=== PATIENT | male | born 1950 | race Caucasian/White ===

== ENCOUNTER → 2017-07-20 12:42 | Outpatient (CLI) | payer MEDICARE, SELFPAY ==
[2017-07-20 12:51] VITALS: BP 127/88; PULSE 58; RESP 16; TEMP 36.6; O2SAT 95; BMI 32.5
== END ==
PROVIDERS: Visit Provider Internal Medicine Rheumatology
DX: M06.4 Inflammatory polyarthropathy (principal)
CPT/HCPCS: 96413; J7050; A4216; J1602

== ENCOUNTER → 2017-09-14 10:20 | Outpatient (CLI) | payer MEDICARE, SELFPAY ==
[2017-09-14 10:38] VITALS: BP 119/79; PULSE 86; RESP 16; TEMP 36.7; BMI 32.3
== END ==
PROVIDERS: Visit Provider Internal Medicine Rheumatology
DX: M06.4 Inflammatory polyarthropathy (principal)
CPT/HCPCS: 96413; J7050; A4216; J1602

== ENCOUNTER → 2017-11-09 10:04 | Outpatient (CLI) | payer MEDICARE, SELFPAY ==
[2017-11-09 10:34] VITALS: BP 128/82; PULSE 79; RESP 16; TEMP 37.1; O2SAT 95; BMI 32.7
== END ==
PROVIDERS: Visit Provider Internal Medicine Rheumatology
DX: M06.4 Inflammatory polyarthropathy (principal)
CPT/HCPCS: 96413; J7050; A4216; J1602

== ENCOUNTER → 2018-01-04 10:24 | Outpatient (CLI) | payer MEDICARE, SELFPAY ==
[2018-01-04 11:15] VITALS: BP 120/92; PULSE 67; RESP 16; TEMP 36.7; BMI 32.7
== END ==
PROVIDERS: Visit Provider Internal Medicine Rheumatology
DX: M06.4 Inflammatory polyarthropathy (principal)
CPT/HCPCS: 96413; J7050; A4216; J1602

== ENCOUNTER → 2018-03-01 10:03 | Outpatient (CLI) | payer MEDICARE, SELFPAY ==
[2018-03-01 10:14] VITALS: BP 126/90; PULSE 83; TEMP 37.2; O2SAT 95; BMI 32.8
== END ==
PROVIDERS: Visit Provider Internal Medicine Rheumatology
DX: M06.4 Inflammatory polyarthropathy (principal)
CPT/HCPCS: 96413; A4216; J1602

== ENCOUNTER → 2018-04-26 10:05 | Outpatient (CLI) | payer MEDICARE, SELFPAY ==
[2018-04-26 10:25] VITALS: BP 125/90; PULSE 71; RESP 16; TEMP 36.3; O2SAT 95; BMI 33.2
--- OUTSIDE RECORDS SUMMARY | 2018-07-28 22:38 | XMS RPT_ITS ---
:1950 Author Organization [place] Support Name Relationship Address Phone HILL, LUZ MARIA Unavailable [address] + ~[phone] [place] [address] HILL, LUZ MARIA Unavailable [address] + ~[phone] [place] [address] HILL, LUZ MARIA Unavailable [address] + [place] [address] R Unavailable Unavailable Unavailable HILL, LUZ MARIA Unavailable [address] + [place] [address] R Unavailable Unavailable Unavailable HILL, LUZ MARIA Unavailable [address] + ~[phone] [place] [address] HILL, LUZ MARIA Unavailable [address] + ~[phone] [place] [address] HILL, LUZ MARIA Unavailable [address] + [place] [address] R Unavailable Unavailable Unavailable HILL, LUZ MARIA Unavailable [address] + [place] [address] R Unavailable Unavailable Unavailable HILL, LUZ MARIA Unavailable [address] + ~[phone] [place] [address] HILL, LUZ MARIA Unavailable [address] + ~[phone] [place] [address] HILL, LUZ MARIA Unavailable [address] + [place] [address] R Unavailable Unavailable Unavailable HILL, LUZ MARIA Unavailable [address] [phone] [place] [address] R Unavailable Unavailable Unavailable HILL, LUZ MARIA Unavailable [address] + ~[phone] [place] [address] HILL, LUZ MARIA Unavailable [address] + ~[phone] [place] [address] HILL, LUZ MARIA Unavailable [address] [phone] [place] [address] R Unavailable Unavailable Unavailable HILL, LUZ MARIA Unavailable [address] + ~[phone] [place] [address] HILL, LUZ MARIA Unavailable [address] + ~[phone] [place] [address] HILL, LUZ MARIA Unavailable [address] + ~[phone] [place] [address] HILL, LUZ MARIA Unavailable [address] + ~[phone] [place] [address] Care Team Providers Name Role Phone Vellanki, Iva Attending Unavailable Vellanki, Iva Referring Unavailable REMA WEBSTER Primary Care Unavailable Vellanki, Iva Attending Unavailable Vellanki, Iva Referring Unavailable REMA WEBSTER Primary Care Unavailable Vellanki, Iva Attending Unavailable Vellanki, Iva Referring Unavailable REMA WEBSTER Primary Care Unavailable Vellanki, Iva Attending Unavailable Vellanki, Iva Referring Unavailable REMA WEBSTER Primary Care Unavailable Vellanki, Iva Attending Unavailable Vellanki, Iva Referring Unavailable REMA WEBSTER Primary Care Unavailable Vellanki, Iva Attending Unavailable Vellanki, Iva Referring Unavailable REMA WEBSTER Primary Care Unavailable Vellanki, Iva Attending Unavailable Vellanki, Iva Referring Unavailable REMA WEBSTER Primary Care Unavailable VELLANKI, IVA Admitting Unavailable VELLANKI, IVA Attending Unavailable CHERYL DO, DR SINGH Primary Care Unavailable OGLE DO, DR SINGH Consulting Unavailable VELLANKI, IVA Consulting Unavailable CHERYL TILLMAN, DR SINGH Admitting Unavailable CHERYL TILLMAN, DR SINGH Attending Unavailable CHERYL TILLMAN, DR SINGH Primary Care Unavailable Shivam [phone], Alejandrina [phone] Consulting Unavailable CHERYL DO, DR SINGH Consulting Unavailable DAVID LEORY Admitting Unavailable GREG LE Attending Unavailable OGLE DO, DR SINGH Consulting Unavailable CUSH, GREG Admitting Unavailable CUSHDAVIDGREG Attending Unavailable OGLE DO, DR SINGH Primary Care Unavailable NONE, NONE Consulting Unavailable POW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, FLAVIO A Admitting Unavailable POW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, FLAVIO A Attending Unavailable OGLE DO, DR SINGH Primary Care Unavailable OGLE DO, DR SINGH Consulting Unavailable POW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, FLAVIO A Consulting Unavailable CUSH, GREG Admitting Unavailable CUSH, GREG Attending Unavailable OGLE DO, DR SINGH Primary Care Unavailable NONE, NONE Consulting Unavailable VELLANKI, IVA Admitting Unavailable VELLANKI, IVA Attending Unavailable OGLE DO, DR SINGH Primary Care Unavailable OGLE DO, DR SINGH Consulting Unavailable VELLANKI, IVA Consulting Unavailable VELLANKI, IVA Admitting Unavailable VELLANKI, IVA Attending Unavailable OGLE DO, DR SINGH Primary Care Unavailable OGLE DO, DR SINGH Consulting Unavailable VELLANKI, IVA Consulting Unavailable ROSE MARIE HICKS, DR WARREN Admitting Unavailable ROSE MARIE HICKS, DR WARREN Attending Unavailable OGLE DO, DR SINGH Primary Care Unavailable ROSE MARIE HICKS, DR WARREN Consulting Unavailable OGLE DO, DR SINGH Consulting Unavailable ROSE MARIE HICKS, DR WARREN Admitting Unavailable ROSE MARIE HICKS, DR WARREN Attending Unavailable OGLE DO, DR SINGH Primary Care Unavailable ROSE MARIE HICKS, DR WARREN Consulting Unavailable OGLE DO, DR SINGH Consulting Unavailable VELLANKI, IVA Admitting Unavailable VELLANKI, IVA Attending Unavailable OGLE DO, DR SINGH Primary Care Unavailable OGLE DO, DR SINGH Consulting Unavailable VELLANKI, IVA Consulting Unavailable PROBLEMS PROBLEMS DATE TYPE CONDITION / CODE ATTENDING STATUS SOURCE Admitting INFLAMMATORY TRISTAN Active [place] [address] diagnosis POLYARTHROPATHY / [facility] M06.4(ICD-10) Repository Unknown INFLAMMATORY TRISTAN Active [place] [address] POLYARTHROPATHY / [facility] M06.4(ICD-10) Repository Unknown OTH LONG-TERM CURRENT TRISTAN Active [place] [address] DRUG THERAPY / [facility] Z79.899(ICD-10) Repository Unknown FLAT FOOT PES PLANUS TRISTAN Active [place] [address] ACQ UNS FT / [facility] M21.40(ICD-10) Repository Unknown CHRONIC KIDNEY DISEASE RTISTAN Active [facility] 9 UNSPECIFIED / [facility] Hospital N18.9(ICD-10) Repository Unknown ESSENTIAL PRIMARY TRISTAN Active [facility] 9 HYPERTENSION / [facility] Hospital I10(ICD-10) Repository Unknown 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 [facility] 9 ANGINA PECTORIS / [facility] I25.10(ICD-10) Repository Unknown HYPERLIPIDEMIA TRISTAN Active [facility] 9 UNSPECIFIED / [facility] Hospital E78.5(ICD-10) Repository Unknown 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, Active [place] [address] INFARCTION / [facility] I25.2(ICD-10) Repository Unknown ABNORMAL ROSE MARIE HICKS, Active [facility] 8 ELECTROCARDIOGRAM / [facility] R94.31(ICD-10) Repository Unknown OTHER CHEST PAIN / ROSE MARIE HICKS DR Active [facility] 8 R07.89(ICD-10) [facility] Repository Unknown PERSONAL HISTORY OF ROSE MARIE HICKS, Active [facility] 8 NICOTINE DEPEND / [facility] Z87.891(ICD-10) Repository Unknown PRESENCE AORTOCORONARY ROSE MARIE HICKS, Active [facility] 8 BYPASS GRAFT / [facility] Z95.1(ICD-10) Repository Admitting UNSTABLE ANGINA / DR Sue TROTTER MD [facility] 8 diagnosis I20.0(ICD-10) [facility] Repository Unknown ATS CA BP GRAFT NO ROSE MARIE HICKS, Active [facility] 8 ANGINA PECTORIS / [facility] I25.810(ICD-10) Repository Unknown CHRONIC TOTAL ROSE MARIE HICKS, Active [facility] 8 OCCLUSION COR ART / [facility] I25.82(ICD-10) Repository Unknown STENOSIS CORONARY ROSE MARIE HICKS, Active [facility] 8 ARTERY STENT INIT / [facility] T82.855A(ICD-10) Repository Unknown OTHER DISORDERS OF ROSE MARIE HICKS DR Active [facility] 8 LUNG / J98.4(ICD-10) [facility] Repository Unknown FAM HX ISCHEMIC HRT ADRIEN TROTTER MD, Active [facility] 8 OTH DZ CIRC / [facility] Z82.49(ICD-10) Repository Unknown ENCOUNTER OTHER ROSE MARIE HICKS DR Active [facility] 8 PREPROCEDURAL EXAM / [facility] Z01.818(ICD-10) Repository Admitting ENCOUNTER OTHER ROSE MARIE HICKS DR Active [facility] 8 diagnosis PREPROCEDURAL EXAM / [facility] Z01.818(ICD-10) Repository Unknown BENIGN PROSTATIC VELLANKI, Active [facility] 8 HYPERPLASIA W/LUTS / [facility] N40.1(ICD-10) Repository Unknown MIXED HYPERLIPIDEMIA / VELLANKI, Active [facility] 8 E78.2(ICD-10) [facility] Repository Unknown GERD WITHOUT VELLANKI, Active [facility] 8 ESOPHAGITIS / [facility] K21.9(ICD-10) Repository Admitting OTHER CHEST PAIN / GIO BRANCH, Active [facility] 8 diagnosis R07.89(ICD-10) [facility] Repository Unknown OTHER RIGHT GIO BRANCH, Active [facility] 8 BUNDLE-BRANCH BLOCK / [facility] 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(ICD-10) Repository Unknown ABNORM RESULT CV GIO BRANCH, Active [facility] 8 FUNCTION STUDY UNS / [facility] R94.30(ICD-10) Repository Unknown SHORTNESS OF BREATH / GIO BRANCH, Active [facility] 8 R06.02(ICD-10) [facility] Repository Unknown PRESENCE RT ARTIFICIAL CUSH, GREG Active [facility] 8 SHOULDER JNT / Hospital Z96.611(ICD-10) Repository Admitting CONTUSION RIGHT CUSH, GREG Active [facility] 8 diagnosis SHOULDER SUBSEQUENT / Hospital S40.011D(ICD-10) Repository Unknown FALL SAME LEVEL D/T CUSH, GREG Active [facility] 8 ICE SNOW SUBSQT / Hospital W00.0XXD(ICD-10) Repository Unknown CONTUSION RIGHT CUSH, GREG Active [facility] 8 SHOULDER SUBSEQUENT / Hospital S40.011D(ICD-10) Repository Unknown PAIN IN RIGHT SHOULDER CUSH, GREG Active [facility] 8 / M25.511(ICD-10) Hospital Repository Admitting OTHER INSTABILITY CUSH, GREG [place] [address] diagnosis RIGHT SHOULDER / Hospital M25.311(ICD-10) Repository Unknown OTHER INSTABILITY CUSH, GREG Active [facility] 8 RIGHT SHOULDER / Hospital M25.311(ICD-10) Repository Unknown PAIN IN RIGHT UPPER CUSH, GREG [facility] 8 ARM / M79.621(ICD-10) Hospital Repository Admitting CONTUSION RIGHT CUSH, GREG Active [facility] 8 diagnosis SHOULDER INITIAL / Hospital S40.011A(ICD-10) Repository Unknown CONTUSION RIGHT CUSH, GREG Active [facility] 8 SHOULDER INITIAL / Hospital S40.011A(ICD-10) Repository Unknown FALL SAME LEVEL D/T CUSH, GREG Rogers [facility] 8 ICE SNOW INIT / Hospital W00.0XXA(ICD-10) Repository Admitting PAIN IN RIGHT HIP / OGLE DO, DR Sue [place] [address] diagnosis M25.551(ICD-10) [facility] Repository Unknown PRESENCE RIGHT OGLE DO, DR Sue [place] [address] ARTIFICIAL HIP JOINT / [facility] Z96.641(ICD-10) Repository Unknown PAIN IN RIGHT HIP / OGLE DO, DR Sue [facility] 8 M25.551(ICD-10) [facility] Repository PROCEDURES PROCEDURES No Procedure Records FoundRESULTS RESULTS CBC WITH DIFFERENTIAL Collected: 05/24/2018 Status: F Source: PITMAN 11:49 AM [facility] REPOSITORY TYPE CODE TESTS RESULT OUT OF REFERENCE UNITS RANGE LAB 6690-2(KEVIN 4.80-10.80 10E3/uL NC) WBC # Bld Auto 8.46 LAB 789-8(LOIN 4.00-6.30 10E6/uL C) RBC # Bld Auto 5.10 LAB 718-7(LOIN 14.0-18.0 g/dL C) Hgb Bld-mCnc 15.7 LAB 4544-3(KEVIN 40.0-54.0 % NC) Hct VFr Bld Auto 46.7 LAB 787-2(LOIN 80.0-100.0 fL C) MCV RBC Auto 91.6 LAB 785-6(LOIN 27.0-31.0 pg C) MCH RBC Qn Auto 30.8 LAB 786-4(LOIN 32.0-36.0 g/dL C) MCHC RBC Auto-mCnc 33.6 LAB 45679-5(LO 35.1-43.9 fL INC) RDW RBC Auto 42.6 LAB 777-3(LOIN 130-400 10E3/uL C) Platelet # Bld Auto 195 LAB 24474-7(LO 9.0-13.0 fL INC) PMV Bld Auto 10.5 LAB 770-8(LOIN 50.0-70.0 % C) Neutrophils/leuk 52.6 NFr Bld Auto LAB 736-9(LOIN 20.0-40.0 % C) Lymphocytes NFr Bld Auto 32.5 LAB 5905-5(KEVIN <=8.0 % NC) Monocytes NFr High Bld Auto 10.8 LAB 713-8(LOIN <=10.0 % C) Eosinophil NFr Bld Auto 2.8 LAB 706-2(LOIN <=2.0 % C) Basophils NFr Bld Auto 0.7 LAB 72071-9(LO <=1.50 % INC) Imm Granulocytes/leuk 0.60 NFr Bld Auto LAB 751-8(LOIN 1.40-6.50 10E3/uL C) Neutrophils # Bld Auto 4.45 LAB 731-0(LOIN 1.20-3.40 10E3/uL C) Lymphocytes # Bld Auto 2.75 LAB 742-7(LOIN 0.10-0.60 10E3/uL C) Monocytes # High Bld Auto 0.91 LAB 711-2(LOIN <=0.70 10E3/uL C) Eosinophil # Bld Auto 0.24 LAB 704-7(LOIN <=0.70 10E3/uL C) Basophils # Bld Auto 0.06 LAB 59966-7(LO <=0.10 10E3/uL INC) Imm Granulocytes # Bld 0.05 Auto LAB 771-6(LOIN <=0.10 10E3/uL C) nRBC # Bld Auto 0.00 Performed By: #### 66926-8 #### [facility] [address] [place] [address] Auto Mechanic Supervisor - Flaca GASTELUM [id number] COMPREHENSIVE METABOLIC Collected: 05/24/2018 Status: F Source: TAYLOR PANEL 11:49 AM [facility] REPOSITORY TYPE CODE TESTS RESULT OUT OF REFERENCE UNITS RANGE LAB 2951-2(LO 136-145 mmol/L INC) 142 Sodium SerPl-sCnc LAB 2823-3(LO 3.5-5.1 mmol/L INC) 4.1 Potassium SerPl-sCnc LAB 2075-0(LO 98-107 mmol/L INC) 109 High Chloride SerPl-sCnc LAB 2028-9(LO 21-32 mmol/L INC) 26 CO2 SerPl-sCnc LAB 3094-0(LO 9-20 mg/dL INC) 22 High BUN SerPl-mCnc LAB 2160-0(LO 0.67-1.17 mg/dL INC) 1.37 High Creat SerPl-mCnc LAB 98475-5(L >=59 mL/min OINC) 52 Low GFR/BSA.pred SerPl MDRD-ArVRat LAB 2345-7(LO 74-106 mg/dL INC) 93 Glucose SerPl-mCnc LAB 39732-7(L 8.5-10.1 mg/dL OINC) 8.8 Calcium SerPl-mCnc LAB 1975-2(LO 0.2-1.0 mg/dL INC) 0.5 Bilirub SerPl-mCnc LAB 2885-2(LO 6.4-8.2 g/dL INC) 7.1 Prot SerPl-mCnc LAB 1751-7(LO 3.4-5.0 g/dL INC) 3.8 Albumin SerPl-mCnc LAB 47221-6(L <=15.0 mmol/L OINC) 7.0 Anion Gap3 SerPl-sCnc LAB 6768-6(LO 50-136 U/L INC) 58 ALP SerPl-cCnc LAB 1920-8(LO 15-37 U/L INC) 19 AST SerPl-cCnc LAB 1742-6(LO 16-63 U/L INC) 29 ALT SerPl-cCnc LAB HGFR(LOIN C) GLOMERULAR HGFR FILTRATION RATE INTERPRETATION~The eGFR is calculated using the MDRD equation.~This equation has been validated in patients with chronic kidney disease;~however, it underestimates the GFR in healthy patients with GFR's over 60 mL/min.~The equation is not valid in children under the age of 18.~NOTE: Criteria for Chronic Kidney Disease:~ ~1. Kidney damage for at least three months, as defined~by structural or functional abnormalities of the kidney,~with or without decreased glomerular filtration rate, manifested by either:~* Pathological abnormalities or~* Markers of Kidney damage, including abnormalities in~the composition of the blood or urine or abnormalities in imaging tests.~ ~2. GFR <60 mL/min/1.73 m squared for at least three months, with or without kidney damage.~ Performed By: #### 60990-4 #### [facility] [address] [place], [place] [address] Auto Mechanic Supervisor - Flaca GASTELUM [id number] CBC WITH DIFFERENTIAL Collected: 03/19/2018 Status: F Source: PITMAN 11:23 AM [facility] REPOSITORY TYPE CODE TESTS RESULT OUT OF REFERENCE UNITS RANGE LAB 6690-2(KEVIN 4.80-10.80 10E3/uL NC) WBC # Bld Auto 7.69 LAB 789-8(LOIN 4.00-6.30 10E6/uL C) RBC # Bld Auto 5.44 LAB 718-7(LOIN 14.0-18.0 g/dL C) Hgb Bld-mCnc 16.6 LAB 4544-3(KEVIN 40.0-54.0 % NC) Hct VFr Bld Auto 49.2 LAB 787-2(LOIN 80.0-100.0 fL C) MCV RBC Auto 90.4 LAB 785-6(LOIN 27.0-31.0 pg C) MCH RBC Qn Auto 30.5 LAB 786-4(LOIN 32.0-36.0 g/dL C) MCHC RBC Auto-mCnc 33.7 LAB 52312-2(LO 35.1-43.9 fL INC) RDW RBC Auto 42.3 LAB 777-3(LOIN 130-400 10E3/uL C) Platelet # Bld Auto 197 LAB 59817-1(LO 9.0-13.0 fL INC) PMV Bld Auto 10.5 LAB 770-8(LOIN 50.0-70.0 % C) Neutrophils/leuk 58.0 NFr Bld Auto LAB 736-9(LOIN 20.0-40.0 % C) Lymphocytes NFr Bld Auto 28.9 LAB 5905-5(KEVIN <=8.0 % NC) Monocytes NFr High Bld Auto 9.4 LAB 713-8(LOIN <=10.0 % C) Eosinophil NFr Bld Auto 2.3 LAB 706-2(LOIN <=2.0 % C) Basophils NFr Bld Auto 0.9 LAB 73769-7(LO <=1.50 % INC) Imm Granulocytes/leuk 0.50 NFr Bld Auto LAB 751-8(LOIN 1.40-6.50 10E3/uL C) Neutrophils # Bld Auto 4.46 LAB 731-0(LOIN 1.20-3.40 10E3/uL C) Lymphocytes # Bld Auto 2.22 LAB 742-7(LOIN 0.10-0.60 10E3/uL C) Monocytes # High Bld Auto 0.72 LAB 711-2(LOIN <=0.70 10E3/uL C) Eosinophil # Bld Auto 0.18 LAB 704-7(LOIN <=0.70 10E3/uL C) Basophils # Bld Auto 0.07 LAB 80840-2(LO <=0.10 10E3/uL INC) Imm Granulocytes # Bld 0.04 Auto LAB 771-6(LOIN <=0.10 10E3/uL C) nRBC # Bld Auto 0.00 Performed By: #### 74076-4 #### [facility] [address] [place] [address] Auto Mechanic Supervisor - Flaca GASTELUM [id number] BASIC METABOLIC PANEL Collected: 03/19/2018 Status: F Source: [facility] 11:23 AM HOSPITAL REPOSITORY TYPE CODE TESTS RESULT OUT OF REFERENCE UNITS RANGE LAB 2951-2(LO 136-145 mmol/L INC) 144 Sodium SerPl-sCnc LAB 2823-3(LO 3.5-5.1 mmol/L INC) 4.4 Potassium SerPl-sCnc LAB 2075-0(LO 98-107 mmol/L INC) 109 High Chloride SerPl-sCnc LAB 2028-9(LO 21-32 mmol/L INC) 25 CO2 SerPl-[facility] LAB 3094-0(LO 9-20 mg/dL INC) 19 BUN SerPl-[facility] LAB 2160-0(LO 0.67-1.17 mg/dL INC) 1.46 High Creat SerPl-[facility] LAB 75777-6(L >=59 mL/min OINC) 48 Low GFR/BSA.pred SerPl MDRD-ArVRat LAB 2345-7(LO 74-106 mg/dL INC) 114 High Glucose SerPl-[facility] LAB 26070-9(L 8.5-10.1 mg/dL OINC) 8.8 Calcium SerPl-[facility] LAB 69662-7(L <=15.0 mmol/L OINC) 10.0 Anion Gap3 [facility] LAB HGFR(LOIN C) GLOMERULAR HGFR FILTRATION RATE INTERPRETATION~The eGFR is calculated using the MDRD equation.~This equation has been validated in patients with chronic kidney disease;~however, it underestimates the GFR in healthy patients with GFR's over 60 mL/min.~The equation is not valid in children under the age of 18.~NOTE: Criteria for Chronic Kidney Disease:~ ~1. Kidney damage for at least three months, as defined~by structural or functional abnormalities of the kidney,~with or without decreased glomerular filtration rate, manifested by either:~* Pathological abnormalities or~* Markers of Kidney damage, including abnormalities in~the composition of the blood or urine or abnormalities in imaging tests.~ ~2. GFR <60 mL/min/1.73 m squared for at least three months, with or without kidney damage.~ Performed By: #### 19150-4 #### [facility] [address] [place] [address] Auto Mechanic Supervisor - Flaca GASTELUM [id number] QUANTIFERON FOR Collected: 12/07/2017 Status: F Source: PITMAN TUBERCULOSIS INCUBATED 4:40 PM [facility] REPOSITORY TYPE CODE TESTS RESULT OUT OF REFERENCE UNITS RANGE LAB 054604(LOIN Negative C) 03714-2 Negative Result Comment: . The specimen received for QuantiFERON testing was incubated by the ordering institution. Specific procedures outlined in our Directory of Services and in the package insert for the QuantiFERON Gold (In Tube) test must be followed to enable for proper stimulation of cells for the production of interferon gamma. LAB 437157(LOINC) 8251-1 Comment Result Comment: To be considered positive a specimen should have a TB Ag minus Nil value greater than or equal to 0.35 IU/mL and in addition the TB Ag minus Nil value must be greater than or equal to 25% of the Nil value. There may be insufficient information in these values to differentiate between some negative and some indeterminate test values. LAB 473298(LOINC) IU/mL 45374-0 0.06 LAB 387655(LOINC) IU/mL 58341-7 0.07 LAB 511739(LOINC) IU/mL 34926-6 >10.00 LAB 724029(LOINC) IU/mL 74144-9 <0.00 LAB 221766(LOINC) 19105-3 Comment Result Comment: The QuantiFERON TB Gold (in Tube) assay is intended for use as an aid in the diagnosis of TB infection. Negative results suggest that there is no TB infection. In patients with high suspicion of exposure, a negative test should be repeated. A positive test indicates infection with Mycobacterium tuberculosis. Among individuals without tuberculosis infection, a positive test may be due to exposure to M. kansasii, M. szulgai or M. marinum. On the Internet, go to cdc.gov/tb for further details. Performed By: #### QUANT #### Performed for [address] [address] CBC WITH DIFFERENTIAL Collected: 11/30/2017 Status: F Source: PITMAN 11:46 AM [facility] REPOSITORY TYPE CODE TESTS RESULT OUT OF REFERENCE UNITS RANGE LAB 6690-2(KEVIN 4.80-10.80 10E3/uL NC) WBC # Bld Auto 6.67 LAB 789-8(LOIN 4.00-6.30 10E6/uL C) RBC # Bld Auto 5.10 LAB 718-7(LOIN 14.0-18.0 g/dL C) Hgb Bld-mCnc 15.8 LAB 4544-3(KEVIN 40.0-54.0 % NC) Hct VFr Bld Auto 46.9 LAB 787-2(LOIN 80.0-100.0 fL C) MCV RBC Auto 92.0 LAB 785-6(LOIN 27.0-31.0 pg C) MCH RBC Qn Auto 31.0 LAB 786-4(LOIN 32.0-36.0 g/dL C) MCHC RBC Auto-mCnc 33.7 LAB 30342-5(LO 35.1-43.9 fL INC) RDW RBC Auto 43.7 LAB 777-3(LOIN 130-400 10E3/uL C) Platelet # Bld Auto 196 LAB 97945-2(LO 9.0-13.0 fL INC) PMV Bld Auto 10.2 LAB 770-8(LOIN 50.0-70.0 % C) High Neutrophils/leuk 73.7 NFr Bld Auto LAB 736-9(LOIN 20.0-40.0 % C) Low Lymphocytes NFr Bld Auto 19.8 LAB 5905-5(KEVIN <=8.0 % NC) Monocytes NFr Bld Auto 5.4 LAB 713-8(LOIN <=10.0 % C) Eosinophil NFr Bld Auto 0.1 LAB 706-2(LOIN <=2.0 % C) Basophils NFr Bld Auto 0.6 LAB 83726-2(LO <=1.50 % INC) Imm Granulocytes/leuk 0.40 NFr Bld Auto LAB 751-8(LOIN 1.40-6.50 10E3/uL C) Neutrophils # Bld Auto 4.91 LAB 731-0(LOIN 1.20-3.40 10E3/uL C) Lymphocytes # Bld Auto 1.32 LAB 742-7(LOIN 0.10-0.60 10E3/uL C) Monocytes # Bld Auto 0.36 LAB 711-2(LOIN <=0.70 10E3/uL C) Eosinophil # Bld Auto 0.01 LAB 704-7(LOIN <=0.70 10E3/uL C) Basophils # Bld Auto 0.04 LAB 50177-3(LO <=0.10 10E3/uL INC) Imm Granulocytes # Bld 0.03 Auto LAB 771-6(LOIN <=0.10 10E3/uL C) nRBC # Bld Auto 0.00 Performed By: #### 86351-2 #### [facility] [address] [place] [address] Auto Mechanic Supervisor - Flaca GASTELUM [id number] COMPREHENSIVE METABOLIC Collected: 11/30/2017 Status: F Source: TAYLOR PANEL 11:46 AM [facility] REPOSITORY TYPE CODE TESTS RESULT OUT OF REFERENCE UNITS RANGE LAB 2951-2(LO 136-145 mmol/L INC) 140 Sodium SerPl-sCnc LAB 2823-3(LO 3.5-5.1 mmol/L INC) 4.2 Potassium SerPl-sCnc LAB 2075-0(LO 98-107 mmol/L INC) 107 Chloride SerPl-sCnc LAB 2028-9(LO 21-32 mmol/L INC) 26 CO2 SerPl-sCnc LAB 3094-0(LO 9-20 mg/dL INC) 17 BUN SerPl-mCnc LAB 2160-0(LO 0.67-1.17 mg/dL INC) 1.24 High Creat SerPl-nc LAB 80657-6(L >=59 mL/min OINC) 58 Low GFR/BSA.pred SerPl MDRD-ArVRat LAB 2345-7(LO 74-106 mg/dL INC) 156 High Glucose SerPl-mCnc LAB 20232-7(L 8.5-10.1 mg/dL OINC) 8.4 Low Calcium SerPl-mCnc LAB 1975-2(LO 0.2-1.0 mg/dL INC) 0.5 Bilirub SerPl-mCnc LAB 2885-2(LO 6.4-8.2 g/dL INC) 7.0 Prot SerPl-mCnc LAB 1751-7(LO 3.4-5.0 g/dL INC) 3.6 Albumin SerPl-mCnc LAB 67471-5(L <=15.0 mmol/L OINC) 7.0 Anion Gap3 SerPl-sCnc LAB 6768-6(LO 50-136 U/L INC) 59 ALP SerPl-cCnc LAB 1920-8(LO 15-37 U/L INC) 20 AST SerPl-cCnc LAB 1742-6(LO 16-63 U/L INC) 32 ALT SerPl-cCnc LAB HGFR(LOIN C) GLOMERULAR HGFR FILTRATION RATE INTERPRETATION~The eGFR is calculated using the MDRD equation.~This equation has been validated in patients with chronic kidney disease;~however, it underestimates the GFR in healthy patients with GFR's over 60 mL/min.~The equation is not valid in children under the age of 18.~NOTE: Criteria for Chronic Kidney Disease:~ ~1. Kidney damage for at least three months, as defined~by structural or functional abnormalities of the kidney,~with or without decreased glomerular filtration rate, manifested by either:~* Pathological abnormalities or~* Markers of Kidney damage, including abnormalities in~the composition of the blood or urine or abnormalities in imaging tests.~ ~2. GFR <60 mL/min/1.73 m squared for at least three months, with or without kidney damage.~ Performed By: #### 90125-0 #### [facility] [address] [place] [address] [employer] - Flaca GASTELUM [id number] HIP RT 2 OR 3 VIEWS Observed: 06/18/2017 Status: F Source: [facility] 3:08 PM HOSPITAL REPOSITORY 2-VIEWS RIGHT HIP, 06/18/2017 3:08 PM: COMPARISON: Right hip, 05/01/2017. CLINICAL HISTORY: PAIN IN RIGHT HIP FINDINGS: No acute fracture, subluxation, or dislocation identified. Visualized right total hip prosthesis has a satisfactory and stable appearance. IMPRESSION: No acute osseous abnormality identified as described above. Stable appearance of right total hip prosthesis. SHOULDER RIGHT Observed: 06/18/2017 Status: F Source: [facility] 3:08 PM HOSPITAL REPOSITORY 4-VIEWS RIGHT SHOULDER, 06/18/2017 3:08 PM: COMPARISON: Chest, 01/28/2016 and right shoulder, 09/25/2011. CLINICAL HISTORY: PAIN IN RIGHT SHOULDER. FINDINGS: No acute fracture, subluxation, or dislocation identified. If there is persistent concern for a subtle or nondisplaced fracture, repeat views could be obtained in 7 to 10 days. Right proximal humeral head prosthesis has a satisfactory and stable appearance. IMPRESSION: No acute osseous abnormality identified as described above. Right proximal humeral prosthesis remains stable in appearance. CBC WITH DIFFERENTIAL Collected: 06/08/2017 Status: F Source: PITMAN 11:52 AM [facility] HOSPITAL REPOSITORY TYPE CODE TESTS RESULT OUT OF REFERENCE UNITS RANGE LAB 6690-2(KEVIN 4.80-10.80 10E3/uL NC) WBC # Bld Auto 7.50 LAB 789-8(LOIN 4.00-6.30 10E6/uL C) RBC # Bld Auto 4.74 LAB 718-7(LOIN 14.0-18.0 g/dL C) Hgb Bld-mCnc 14.6 LAB 4544-3(KEVIN 40.0-54.0 % NC) Hct VFr Bld Auto 43.2 LAB 787-2(LOIN 80.0-100.0 fL C) MCV RBC Auto 91.1 LAB 785-6(LOIN 27.0-31.0 pg C) MCH RBC Qn Auto 30.8 LAB 786-4(LOIN 32.0-36.0 g/dL C) MCHC RBC Auto-mCnc 33.8 LAB 13744-5(LO 35.1-43.9 fL INC) RDW RBC Auto 42.7 LAB 777-3(LOIN 130-400 10E3/uL C) Platelet # Bld Auto 189 LAB 09026-7(LO 9.0-13.0 fL INC) PMV Bld Auto 10.3 LAB 770-8(LOIN 50.0-70.0 % C) Neutrophils/leuk 55.1 NFr Bld Auto LAB 736-9(LOIN 20.0-40.0 % C) Lymphocytes NFr Bld Auto 32.9 LAB 5905-5(KEVIN <=8.0 % NC) Monocytes NFr High Bld Auto 8.8 LAB 713-8(LOIN <=10.0 % C) Eosinophil NFr Bld Auto 1.9 LAB 706-2(LOIN <=2.0 % C) Basophils NFr Bld Auto 0.9 LAB 42744-0(LO <=1.50 % INC) Imm Granulocytes/leuk 0.40 NFr Bld Auto LAB 751-8(LOIN 1.40-6.50 10E3/uL C) Neutrophils # Bld Auto 4.13 LAB 731-0(LOIN 1.20-3.40 10E3/uL C) Lymphocytes # Bld Auto 2.47 LAB 742-7(LOIN 0.10-0.60 10E3/uL C) Monocytes # High Bld Auto 0.66 LAB 711-2(LOIN <=0.70 10E3/uL C) Eosinophil # Bld Auto 0.14 LAB 704-7(LOIN <=0.70 10E3/uL C) Basophils # Bld Auto 0.07 LAB 89232-7(LO <=0.10 10E3/uL INC) Imm Granulocytes # Bld 0.03 Auto LAB 771-6(LOIN <=0.10 10E3/uL C) nRBC # Bld Auto 0.00 Performed By: #### 29453-4 #### [facility] [address] [place] [address] Auto Mechanic Supervisor - Flaca GASTELUM [id number] COMPREHENSIVE METABOLIC Collected: 06/08/2017 Status: F Source: PITMAN PANEL 11:52 AM [facility] REPOSITORY TYPE CODE TESTS RESULT OUT OF REFERENCE UNITS RANGE LAB 2951-2(LO 136-145 mmol/L INC) 143 Sodium SerPl-sCnc LAB 2823-3(LO 3.5-5.1 mmol/L INC) 3.8 Potassium SerPl-sCnc LAB 2075-0(LO 98-107 mmol/L INC) 109 High Chloride SerPl-sCnc LAB 2028-9(LO 21-32 mmol/L INC) 27 CO2 SerPl-sCnc LAB 3094-0(LO 9-20 mg/dL INC) 18 BUN SerPl-nc LAB 2160-0(LO 0.67-1.17 mg/dL INC) 1.20 High Creat SerPl-nc LAB 66008-4(L >=59 mL/min OINC) >=59 GFR/BSA.pred SerPl MDRD-ArVRat LAB 2345-7(LO 74-106 mg/dL INC) 93 Glucose SerPl-nc LAB 87542-9(L 8.5-10.1 mg/dL OINC) 8.4 Low Calcium SerPl-nc LAB 1975-2(LO 0.2-1.0 mg/dL INC) 0.5 Bilirub SerPl-nc LAB 2885-2(LO 6.4-8.2 g/dL INC) 6.7 Prot SerPl-nc LAB 1751-7(LO 3.4-5.0 g/dL INC) 3.6 Albumin SerPl-mCnc LAB 11017-4(L <=15.0 mmol/L OINC) 7.0 Anion Gap3 SerPl-sCnc LAB 6768-6(LO 50-136 U/L INC) 53 ALP SerPl-cCnc LAB 1920-8(LO 15-37 U/L INC) 17 AST SerPl-cCnc LAB 1742-6(LO 16-63 U/L INC) 24 ALT SerPl-cCnc LAB HGFR(LOIN C) GLOMERULAR HGFR FILTRATION RATE INTERPRETATION~The eGFR is calculated using the MDRD equation.~This equation has been validated in patients with chronic kidney disease;~however, it underestimates the GFR in healthy patients with GFR's over 60 mL/min.~The equation is not valid in children under the age of 18.~NOTE: Criteria for Chronic Kidney Disease:~ ~1. Kidney damage for at least three months, as defined~by structural or functional abnormalities of the kidney,~with or without decreased glomerular filtration rate, manifested by either:~* Pathological abnormalities or~* Markers of Kidney damage, including abnormalities in~the composition of the blood or urine or abnormalities in imaging tests.~ ~2. GFR <60 mL/min/1.73 m squared for at least three months, with or without kidney damage.~ Performed By: #### 81575-7 #### [facility] [address] [place] [address] Auto Mechanic Supervisor - Flaca GASTELUM [id number] ALLERGIES ALLERGIES DATE TYPE / CODE NAME / CODE REACTION SEVERITY SOURCE 09/14/2017 Drug Iodinated Itching Unknown [facility] Allergy/416 Contrast- Oral [facility] 489503(SNOM and IV Repository ED CT) Dye/R801339387(R XNORM) 09/14/2017 Drug NSAIDS Other Unknown [facility] Allergy/416 (Non-Steroidal Hospital 241681(SNOM Anti-Inflamma/F[address]) 93376632(RXNORM) 09/14/2017 Drug cephalexin/F0060 Itching Unknown [facility] Allergy/416 38748(RXNORM) Hospital 517919(SNOM Repository ED CT) Drug Keflex/6608(RXNO ITCHING Moderate [facility] Allergy/416 RM) (severity Hospital 948738(SNOM modifier) Repository ED CT) (qualifier value) Drug NSAIDS/439(RXNOR kidney disease Severe [facility] Allergy/416 M) (severity Hospital 474524(SNOM modifier) Repository ED CT) (qualifier value) Drug Plaquenil/6724(R severe diarrhea Moderate [facility] Allergy/416 XNORM) (severity Hospital 781937(SNOM modifier) Repository ED CT) (qualifier value) ENCOUNTERS ENCOUNTERS ADMIT/DISCHARGE ACCOUNT ADMITTING ENCOUNTER LOCATION SOURCE NUMBER CLASS 05/24/2018/05/24/19 [id number] TRISTAN [address] - Repository LiveBuilding: KMPLAB 04/26/2018 [id number] [facility] ing:MEDOUTP Repository 04/16/2018 [id number] [facility] ing:MEDOUTP Repository 03/23/2018/03/23/[id number] - Repository LiveBuilding: CARDIOVASCULA RRoom: 402Bed: A 03/19/2018/03/19/[id number] - Repository LiveBuilding: KMPLAB 03/01/2018 [id number] [facility] ing:MEDOUTP Repository 01/04/2018 [id number] [facility] ing:MEDOUTP Repository 12/07/2017/12/08/19 [id number] TRIST[facility] [address] - Repository LiveBuilding: KMPLAB 11/30/2017/12/01/19 [id number] TRI[facility] [address] - Repository LiveBuilding: KMPLAB 11/09/2017 [id number] [facility] ing:MEDOUTP Repository 09/14/2017 [id number] [facility] ing:MEDOUTP Repository 08/25/2017/08/26/19 [id number] 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[employer]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, Ambulatory [facility] [address] [facility] - Repository LiveBuilding: CARD 08/20/2017/08/21/19 [id number] GREG LE [address] - Repository LiveBuilding: PHY 07/20/2017 [id number] Ambulatory [facility] Hospital ing:MEDOUTP Repository 07/06/2017/10/10/19 [id number] DAVID LEORY [address] - Repository LiveBuilding: OUTPATIENT 07/02/2017/07/02/19 [id number] GREG LE [address] - Repository LiveBuilding: PHY 06/18/2017/06/18/[id number] - Repository LiveBuilding: KMP RAD 06/08/2017/06/08/19 [id number] TRIST[facility] [address] - Repository LiveBuilding: KMPLAB PAYERS PAYERS ENCOUNTER GUARANTOR PAYER SUBSCRIBER SOURCE 05/24/2018 ELIF D Primary ELIF D [facility] LYONSDOB: Insurance:HUMANA LYONSDOB: [facility] [id number] BOX MEDICAREPolicy [id number] Repository [address] [place] [address] Number: [facility] [address], [address]Qas: [id number] [place] [address] ~(7 Date:2666-33-95OT [address] ) [address] [place] [address]UZ: 04/26/2018 ELIF D LYONSPO Primary ELIF D [place] [address] [place] [address], Insurance:HUMANA [place]SD[place] [place] [address]Zdx: MEDICARE PPOPolicy [id number] Hospital Number: Repository () [id number] Date:0168-81-04XN [address] [place] [address]RM: 04/26/2018 Secondary NOT GIVENUNK [place] Insurance:SELF PAY [facility] Number: Effective Repository Date:2018-04-19 04/16/2018 ELIF D LYONSPO Primary ELIF D [place] [address] [place] [address], Insurance:HUMANA L[place]SDOB: [place] [address]Jpw: MEDICARE PPOPolicy [id number] Hospital Number: Repository () [id number] Date:8826-98-17RW [address] [place] [address]UZ: 04/16/2018 Secondary NOT GIVENUNK [place] Insurance:SELF PAY [facility] Number: Effective Repository Date:2018-01-04 03/23/2018 ELIF D Primary ELIF D [facility] LYONSDOB: Insurance:HUMANA LYONSDOB: Hospital [id number] BOX MEDICAREPolicy [id number] Repository [address] [place] [address] Number: [address], [address]Oib: [id number] [place] [address] ~(7 Date:7589-95-92BE [address] () [address] [place] [address]RZ: 03/19/2018 ELIF D Primary ELIF D [facility] LYONSDOB: Insurance:HUMANA LYONSDOB: Hospital [id number] BOX MEDICAREPolicy [id number] Repository [address] [place] [address] Number: [address] [address]Asw: [id number] [place] [address] ~(7 Date:2817-25-45RT [address] (HP) [address] [place] [address]AV: 03/01/2018 ELIF D LYONSPO Primary ELIF D [place] [address] [place] [address], Insurance:HUMANA [place]SDOB: [place] [address]Ecm: MEDICARE PPOPolicy [id number] Hospital Number: Repository () [id number] Date:5792-29-65SL [address] [place] [address]JR: 03/01/2018 Secondary NOT GIVENUNK [place] Insurance:SELF PAY [facility] Number: Effective Repository Date:2018-01-04 01/04/2018 Elif D LyonsPo Primary Elif D [place] [address] [place] [address], Insurance:HUMANA LyonsDOB: [place] [address]Juj: MEDICARE PPOPolicy [id number] Hospital Number: Repository () [id number] Date:7135-44-55CA [address] [place] [address]WM: 01/04/2018 Secondary NOT GIVENUNK [place] Insurance:SELF PAY [facility] Number: Effective Repository Date:2017-09-14 12/07/2017 ELIF D Primary ELIF D [facility] LYONSDOB: Insurance:HUMANA LYONSDOB: [facility] [id number] BOX MEDICAREPolicy [id number] Repository [address] [place] [address] Number: [address] [place] [address], [address]Lge: [id number] [place] [address] ~(7 Date:0670-25-08ZQ [address] () [address] [place] [address]BJ: 11/30/2017 ELIF D Primary ELIF D [facility] LYONSDOB: Insurance:HUMANA LYONSDOB: Hospital [id number] BOX MEDICAREPolicy [id number] Repository [address] [place] [address] Number: [address] [place] [address], [address]Yfm: [id number] [place] [address] ~(7 Date:1676-98-91ZR [address] () [address] [place] [address]WW: 11/09/2017 Elif D LyonsPo Primary Elif D [place] [address] [place] [address], Insurance:HUMANA LyonsDOB: [place] [address]Vgm: MEDICARE PPOPolicy [id number] Hospital Number: Repository () [id number] Date:5347-20-66RF [address] [place] [address]ZD: 11/09/2017 Secondary NOT GIVENUNK [place] Insurance:SELF PAY [facility] Number: Effective Repository Date:2017-09-14 09/14/2017 Elif D LyonsPo Primary Elif D [place] [address] [place] [address], Insurance:HUMANA LyonsDOB: [facility] [address]Njk: MEDICARE PPOPolicy [id number] Hospital [phone] Number: Repository -5 () [id number] Date:3518-17-68JF [address] [address]SV: 09/14/2017 Secondary NOT GIVENUNK [place] Insurance:SELF PAY [facility] Number: Effective Repository Date:2017-02-02 08/25/2017 ELIF D Primary ELIF D [facility] LYONSDOB: Insurance:HUMANA LYONSDOB: Hospital [id number] BOX MEDICAREPolicy [id number] Repository [address] Number: [address] [place], [place] [id number] [address] [id number]: Date:4990-97-52HF [place], [place] ~([address] [place] [address] () [address]KK: 08/20/2017 ELIF D Primary ELIF D [facility] LYONSDOB: Insurance:HUMANA LYONSDOB: Hospital [id number] BOX MEDICAREPolicy [id number] Repository [address] Number: [address] [place], [place] [id number] [place] [id number]: Date:7521-49-52UD [place], [place] ~([address] [place] [address] 40 () [address]AN: 07/20/2017 Elif D LyonsPo Primary Elif D [place] [address] [place] [address], Insurance:HUMANA LyonsDOB: [facility] [address]Arh: MEDICARE PPOPolicy [id number] Hospital [phone] Number: Repository -5 (HP) [id number] Date:8880-30-47YY [address] [address]ZE: 07/20/2017 Secondary NOT GIVENUNK [place] Insurance:SELF PAY [facility] Number: Effective Repository Date:2017-02-02 07/06/2017 ELIF D Primary ELIF D [facility] LYONSDOB: Insurance:HUMANA LYONSDOB: Hospital [id number] BOX MEDICAREPolicy [id number] Repository [address] Number: [address] [place], [place] [id number] [place] [id number]: Date:0343-00-22ND [place], [place] ~([address] [place] [address] () [address]CO: 07/02/2017 ELIF D Primary ELIF D [facility] LYONSDOB: Insurance:HUMANA LYONSDOB: Hospital [id number] BOX MEDICAREPolicy [id number] Repository [address] Number: [address] [place], [place] [id number] BAZ[place] [id number]: Date:5046-04-63CT [place], [place] ~([address] [place] [address] 40 () [address]TA: 06/18/2017 ELIF D Primary ELIF D [facility] LYONSDOB: Insurance:HUMANA LYONSDOB: Hospital [id number] BOX MEDICAREPolicy [id number] Repository [address] Number: [address] [place], [place] [id number] [address]Z[place] [id number]: Date:9911-95-49XD [place], [place] ~([address] [place] [address] 40 (HP) [address]HY: 06/08/2017 ELIF Saeed Primary ELIF [facility] LYONSDOB: Insurance:HUMANA LYONSDOB: Hospital [id number] BOX MEDICAREPolicy [id number] Repository [address] Number: [address] [place], [place] [id number] BAZAN [address]Sdg: Date:9504-22-44XW [place], [place] ~(7 [address]IMJEV[place], [place] [address] 40 () [address]YA:
== END ==
PROVIDERS: Referring Provider Internal Medicine Rheumatology; Visit Provider Internal Medicine Rheumatology
DX: M06.4 Inflammatory polyarthropathy (principal)
CPT/HCPCS: 96413; J7050; A4216; J1602

== ENCOUNTER → 2018-06-21 10:16 | Outpatient (CLI) | payer MEDICARE, SELFPAY ==
[2018-04-26 10:25] VITALS: BMI 33.2
[2018-06-21 11:23] VITALS: BP 125/82; PULSE 74; RESP 16; TEMP 37.1; O2SAT 95; BMI 32.9
== END ==
PROVIDERS: Referring Provider Internal Medicine Rheumatology; Visit Provider Internal Medicine Rheumatology
DX: M06.4 Inflammatory polyarthropathy (principal)
CPT/HCPCS: 96413; J7050; A4216; J1602

== ENCOUNTER → 2018-08-16 | Outpatient (CLI) | payer MEDICARE, SELFPAY ==
[2018-06-21 11:23] VITALS: BMI 32.9
[2018-08-16 10:31] VITALS: BP 122/85; PULSE 84; RESP 16; TEMP 36.6; O2SAT 95; BMI 32.5
== END | disposition home or self-care (01) ==
LOC: MEDOUTP 10:15
PROVIDERS: Family Provider Family Medicine; PCP Family Medicine; Visit Provider Internal Medicine Rheumatology
DX: M06.4 Inflammatory polyarthropathy (principal)
CPT/HCPCS: 96413; J7050; A4216; J1602

== ENCOUNTER → 2018-10-11 10:21 | Outpatient (CLI) | payer MEDICARE, SELFPAY ==
[2018-06-21 11:23] VITALS: BMI 32.9
[2018-08-16 10:31] VITALS: BMI 32.5
[2018-10-11 11:22] VITALS: BP 125/85; PULSE 67; RESP 16; TEMP 36.8; O2SAT 95; BMI 32.1
== END ==
PROVIDERS: Family Provider Family Medicine; PCP Family Medicine; Referring Provider Internal Medicine Rheumatology; Visit Provider Internal Medicine Rheumatology
DX: M06.4 Inflammatory polyarthropathy (principal)
CPT/HCPCS: 96413; J7050; A4216; J1602

== ENCOUNTER → 2018-12-06 10:11 | Outpatient (CLI) | payer MEDICARE, SELFPAY ==
[2018-06-21 11:23] VITALS: BMI 32.9
[2018-10-11 11:22] VITALS: BMI 32.1
[2018-12-06 10:18] VITALS: BP 133/80; PULSE 74; RESP 18; TEMP 36.7; O2SAT 99; BMI 32.6
== END ==
PROVIDERS: Family Provider Family Medicine; PCP Family Medicine; Referring Provider Internal Medicine Rheumatology; Visit Provider Internal Medicine Rheumatology
DX: M06.4 Inflammatory polyarthropathy (principal)
CPT/HCPCS: 96413; J7050; A4216; J1602

== ENCOUNTER → 2019-01-31 11:40 | Outpatient (CLI) | payer MEDICARE, SELFPAY ==
[2018-12-06 10:18] VITALS: BMI 32.6
[2019-01-31 11:49] VITALS: BP 139/89; PULSE 68; RESP 16; TEMP 36.7; BMI 33.2
== END ==
PROVIDERS: Family Provider Family Medicine; PCP Family Medicine; Referring Provider Internal Medicine Rheumatology; Visit Provider Internal Medicine Rheumatology
DX: M06.4 Inflammatory polyarthropathy (principal)
CPT/HCPCS: 96413; J7050; A4216; J1602

== ENCOUNTER → 2019-03-28 11:41 | Outpatient (CLI) | payer MEDICARE, SELFPAY ==
[2018-12-06 10:18] VITALS: BMI 32.6
[2019-01-31 11:49] VITALS: BMI 33.2
[2019-03-28 11:55] VITALS: BP 144/92; PULSE 80; RESP 16; TEMP 36.3; O2SAT 96; BMI 32.8
[2019-03-28 13:17] VITALS: BP 118/76; PULSE 62; RESP 16; TEMP 36.7
== END ==
PROVIDERS: Family Provider Family Medicine; PCP Family Medicine; Referring Provider Internal Medicine Rheumatology; Visit Provider Internal Medicine Rheumatology
DX: M06.4 Inflammatory polyarthropathy (principal)
CPT/HCPCS: 96413; J7050; A4216; J1602

== ENCOUNTER → 2019-05-23 11:41 | Outpatient (CLI) | payer MEDICARE, SELFPAY ==
[2018-12-06 10:18] VITALS: BMI 32.6
[2019-03-28 11:55] VITALS: BMI 32.8
[2019-05-23 11:48] VITALS: BP 135/96; PULSE 78; RESP 16; TEMP 36.7
[2019-05-23 13:06] VITALS: BP 125/75; PULSE 78; RESP 16
== END ==
PROVIDERS: Family Provider Family Medicine; PCP Family Medicine; Referring Provider Internal Medicine Rheumatology; Visit Provider Internal Medicine Rheumatology
DX: M06.4 Inflammatory polyarthropathy (principal)
CPT/HCPCS: 96413; J7050; A4216; J1602

== ENCOUNTER → 2019-07-18 11:37 | Outpatient (CLI) | payer MEDICARE, SELFPAY ==
[2019-03-28 11:55] VITALS: BMI 32.8
[2019-07-18 11:46] VITALS: BP 140/90; PULSE 72; RESP 16; TEMP 36.3; O2SAT 94; BMI 33.0
[2019-07-18 13:18] VITALS: BP 123/96; PULSE 69; RESP 18
== END ==
PROVIDERS: Family Provider Family Medicine; PCP Family Medicine; Referring Provider Internal Medicine Rheumatology; Visit Provider Internal Medicine Rheumatology
DX: M06.4 Inflammatory polyarthropathy (principal)
CPT/HCPCS: 96413; J7050; A4216; J1602

== ENCOUNTER → 2019-09-12 11:36 | Outpatient (CLI) | payer MEDICARE, SELFPAY ==
[2019-03-28 11:55] VITALS: BMI 32.8
[2019-07-18 11:46] VITALS: BMI 33.0
[2019-09-12 11:51] VITALS: BP 113/75; PULSE 72; RESP 16; TEMP 36.7; O2SAT 95; BMI 32.8
[2019-09-12] MEDS: 0.9% NaCl Peripheral Flush Adult/Peds IV (12:23)
[2019-09-12] MEDS: 0.9% NaCl IVPB Med Flush (250 mL) 15 ML IV (12:23)
== END ==
PROVIDERS: Family Provider Family Medicine; PCP Family Medicine; Referring Provider Internal Medicine Rheumatology; Visit Provider Internal Medicine Rheumatology
DX: M06.4 Inflammatory polyarthropathy (principal)
CPT/HCPCS: 96413; J7050; A4216; J1602

== ENCOUNTER → 2019-11-07 11:41 | Outpatient (CLI) | payer MEDICARE, SELFPAY ==
[2019-03-28 11:55] VITALS: BMI 32.8
[2019-09-12 11:51] VITALS: BMI 32.8
[2019-11-07 12:02] VITALS: BP 134/92; PULSE 65; RESP 16; O2SAT 96; BMI 32.3
== END ==
PROVIDERS: Family Provider Family Medicine; PCP Family Medicine; Referring Provider Internal Medicine Rheumatology; Visit Provider Internal Medicine Rheumatology
DX: M06.4 Inflammatory polyarthropathy (principal)
CPT/HCPCS: 96413; J7050; A4216; J1602

== ENCOUNTER → 2020-01-02 10:04 | Outpatient (CLI) | payer MEDICARE, SELFPAY ==
[2019-09-12 11:51] VITALS: BMI 32.8
[2019-11-07 12:02] VITALS: BMI 32.3
[2020-01-02 10:10] VITALS: BP 135/84; PULSE 80; RESP 16; TEMP 36.4; O2SAT 97; BMI 32.4
[2020-01-02] MEDS: 0.9% NaCl Peripheral Flush Adult/Peds IV (10:20)
[2020-01-02] MEDS: 0.9% NaCl IVPB Med Flush (250 mL) 15 ML IV (10:30)
[2020-01-02 11:31] VITALS: BP 111/76; PULSE 77; RESP 16; TEMP 36.5; O2SAT 96
== END ==
PROVIDERS: PCP Family Medicine; Referring Provider Internal Medicine Rheumatology; Visit Provider Internal Medicine Rheumatology
DX: M06.4 Inflammatory polyarthropathy (principal)
CPT/HCPCS: 96413; J7050; A4216; J1602